=== PATIENT | female | born 1985 | race Caucasian/White ===

== ENCOUNTER 2023-05-17 17:08 | Observation (INO) | payer MEDICAID ==
[~2023-05-17] VITALS: Ht 167.6 cm; Wt 68.5 kg
[2023-05-17 18:06] LABS: CLARITY URINE CLEAR (CLEAR); COLOR URINE YELLOW (YELLOW); GLUCOSE URINE NEGATIVE (NEGATIVE); KETONES URINE NEGATIVE (NEGATIVE); LEUKOCYTE ESTERASE URINE NEGATIVE (NEGATIVE); NITRITE URINE NEGATIVE (NEGATIVE); OCCULT BLOOD URINE NEGATIVE (NEGATIVE); PH URINE 5.5 (4.5-8.0); PROTEIN URINE NEGATIVE (NEGATIVE); SPECIFIC GRAVITY URINE 1.026 (1.005-1.030)
[2023-05-17] MEDS: LACTATED RINGERS 1,000 ML IV SCH ×3 (18:44→21:18)
[2023-05-17] MEDS ORDERED: TERBUTALINE SULFATE 1MG/ML VIAL SUBCUT PRN (19:00)
== END 2023-05-17 21:25 | disposition home or self-care (01) ==
LOC: 8 EST LDRP 17:08
PROVIDERS: ADMIT Obstetrics & Gynecology; ATTEND Obstetrics & Gynecology
DX: O26.892 Other specified pregnancy related conditions, second trimester (principal); R10.30 Lower abdominal pain, unspecified; O36.8120 Decreased fetal movements, second trimester, not applicable or unspecified; Z3A.26 26 weeks gestation of pregnancy
CPT/HCPCS: 59025; 96372; 96360; 96361; 81003; 76818; 76805; J3105; J7120; G0378 ×2; G0379